=== PATIENT | female | born 1985 | race American Indian/Alaskan Native ===

== ENCOUNTER 2017-05-01 15:39 | Emergency (ER) | payer MEDICAID ==
[2017-05-01] MEDS ORDERED: NACL 0.9% 1000 ML 1,000 ML IV ONE ×4 (16:17→23:38)
[2017-05-01] MEDS ORDERED: NACL 0.9% 1000 ML 1,000 ML ONE ×2 (16:22→20:24)
[2017-05-01 16:50] LABS: Alanine Aminotransferase 10 units/L (7-56); Albumin 4.1 g/dL (3.9-5); Albumin/Globulin Ratio 1.4 %; Alkaline Phosphatase 49 units/L (35-129); Anion Gap 25 mmol/L; BUN/Creatinine Ratio 11.81; Blood Urea Nitrogen 13 mg/dL (7-17); Calcium 9.7 mg/dL (8.4-10.2); Carbon Dioxide 19 mmol/L (22-30); Chloride 96.7 mmol/L (98-107); Glucose 122 mg/dL (65-100); Lipase 12 units/L (13-60); Potassium 4.2 mmol/L (3.6-5.0); Sodium 136 mmol/L (137-145)
[2017-05-01 16:51] LABS: Hematocrit 42.7 % (30.3-42.9); Hemoglobin 13.9 gm/dl (10.1-14.3); Mean Corpuscular HGB Conc 33 % (30-34); Mean Corpuscular Hemoglobin 31 pg (28-32); Mean Corpuscular Volume 95 fl (79-97); Platelet Count 153 K/mm3 (140-440); Red Blood Count 4.52 M/mm3 (3.65-5.03); Red Cell Distribution Width 14.2 % (13.2-15.2)
[2017-05-01] MEDS ORDERED: ZOFRAN IV ONE (16:59)
[2017-05-01 17:52] LABS: INR 1.08 (0.87-1.13)
[2017-05-01 17:53] LABS: Partial Thromboplastin Time 21.8 Sec. (24.2-36.6)
[2017-05-01] MEDS ORDERED: SUBLIMAZE IV ONE (18:00)
--- NOTE | 2017-05-01 18:06 | Emergency Department Report ---
HPI - General Chief Complaint: Abdominal Pain Time Seen by Provider: 05/01/17 16:37 - HPI HPI: Patient is a 31-year-old female presents for evaluation of abdominal pain. The patient reports left lower quadrant abdominal pain since noon earlier today, 4 hours prior to my evaluation, 10/10 in severity, sharp in quality, constant since onset and progressive, radiating to the back. She has also experienced nausea, 2 episodes of nonbilious, nonbloody emesis, and vaginal bleeding. She states that her vaginal bleeding is consistent with her normal menstrual period , and that her menstrual periods began earlier today prior to her pain. The patient denies fever, chills, night sweats, diarrhea, blood in the stool, dark tarry stool, dysuria, hematuria, flank pain, genital discharge, inability to pass flatus. She shares that she has consumed very little food over the past 3 weeks due to dissatisfaction with food options in [facility]. She admits to consuming better by mouth intake or fluids today. ED Past Medical Hx - Past Medical History Previous Medical History?: Yes Hx Hypertension: Yes Hx Psychiatric Treatment: Yes (ANXIETY) - Surgical History Past Surgical History?: Yes Additional Surgical History: FIBROIDECTOMY - Social History Smoking Status: Never Smoker Substance Use Type: None - Medications Home Medications: Home Medications Medication Instructions Recorded Confirmed Last Taken Type Hydrochlorothiazide [HCTZ] 25 mg PO QDAY 05/01/17 05/01/17 05/01/17 History Lisinopril [Zestril TAB] 10 mg PO QDAY 05/01/17 05/01/17 05/01/17 History Ondansetron [Zofran TAB] 4 mg PO Q8HR PRN #15 tablet 05/02/17 Unknown Rx traMADol [Ultram 50 MG tab] 50 mg PO Q6HR PRN #15 tablet 05/02/17 Unknown Rx ED Review of Systems ROS: Stated complaint: ABDOMINAL PAIN Other details as noted in HPI Constitutional: denies: fever ENT: denies: throat or neck pain Respiratory: denies: cough, shortness of breath Cardiovascular: denies: chest pain Endocrine: denies unexplained weight loss or gain Gastrointestinal: reports abdominal pain, nausea Genitourinary: denies: dysuria Musculoskeletal: denies: leg swelling Skin: denies: rash Neurological: denies: headache Hematological/Lymphatic: denies: easy bleeding or easy bruising Psych: denies sadness or hopelessness Physical Exam - Physical Exam Vital Signs: Vital Signs 05/01/17 05/01/17 05/01/17 15:55 16:03 16:15 Temperature 98.3 F Pulse Rate 95 H 77 79 Respiratory 22 12 12 Rate Blood Pressure 71/31 76/50 O2 Sat by Pulse 100 Oximetry 05/01/17 05/01/17 16:32 16:38 Temperature 97.6 F Pulse Rate Respiratory 18 Rate Blood Pressure O2 Sat by Pulse 98 Oximetry Physical Exam: General: well-nourished, well-developed, no acute distress Head: Normocephalic, atraumatic Eyes: normal sclera ENT: Mucous membranes are pale and dry Neck: No neck stiffness, no cervical adenopathy Respiratory: Breath sounds equal bilaterally, no wheezing, rales, or rhonchi Cardio: S1 and S2 present, no murmurs, rubs, gallops, capillary refill is delayed Abdomen: Normoactive bowel sounds, soft abdomen, left lower quadrant tenderness to palpation present, no rigidity, no guarding or rebound tenderness Chest WALL/Back: No tenderness to palpation of the chest wall, no CVA tenderness with percussion Musc: No pitting edema Skin: No rash Neuro: no facial drooping, normal speech Psych: Normal affect ED Course Vital Signs 05/01/17 05/01/17 05/01/17 15:55 16:03 16:15 Temperature 98.3 F Pulse Rate 95 H 77 79 Respiratory 22 12 12 Rate Blood Pressure 71/31 76/50 O2 Sat by Pulse 100 Oximetry 05/01/17 05/01/17 16:32 16:38 Temperature 97.6 F Pulse Rate Respiratory 18 Rate Blood Pressure O2 Sat by Pulse 98 Oximetry ED Medical Decision Making - Lab Data Result diagrams: 05/01/17 16:02 05/01/17 16:02 - Medical Decision Making The patient was seen and examined by myself. The patient is placed on a monitoring specialist and continuous pulse ox. On initial evaluation, the patient was found to be in no distress. Evaluation orders are placed. IV access is established and the patient is given 1 L normal saline fluid bolus and Zofran for nausea, and IV fentanyl and IV Toradol for pain. Lab results revealed elevated WBC of 14, and otherwise labs were non-concerning including hemoglobin , hematocrit, electrolytes, renal function, LFTs, lipase, urinalysis, and neg preg test. The patient was given 3 additional NS fluid boluses and her BP normalized to 109/63. Ultrasound of the pelvis is unremarkable. CT scan of the abdomen and pelvis with IV contrast is normal as well. The patient was reevaluated and reported that her abdominal pain was completely resolved. The patient is stable for discharge with outpatient follow-up. The patient is given follow-up and return instructions. The patient expressed understanding and agreed with the plan. The patient is discharged in stable condition. Critical care attestation.: If time is entered above; I have spent that time in minutes in the direct care of this critically ill patient, excluding procedure time. ED Disposition Clinical Impression: Dehydration, severe, Hypovolemia due to dehydration, Acute abdominal pain in left lower quadrant Disposition: DC- TO HOME OR SELFCARE Is pt being admited?: No Does the pt Need Aspirin: No Condition: Stable Instructions: Abdominal Pain (ED), Dehydration (ED) Prescriptions: Ondansetron [Zofran TAB] 4 mg PO Q8HR PRN #15 tablet PRN Reason: Nausea traMADol [Ultram 50 MG tab] 50 mg PO Q6HR PRN #15 tablet PRN Reason: Pain Referrals: PRIMARY CARE, [Primary Care Provider] - 3-5 Days [facility] [Provider Group] - 3-5 Days Time of Disposition: 18:11
--- NOTE | 2017-05-01 18:44 | Ultrasound Report ---
FINAL REPORT PROCEDURE: US PELVIC COMPLETE TECHNIQUE: Real-time transabdominal sonography in multiple planes of pelvis was performed with image documentation. This examination was performed without Doppler. Vascular abnormalities, including ovarian torsion, will not be detectable without Doppler evaluation. CPT 85439 HISTORY: LLQ abd/pelvic pain COMPARISON: No prior studies are available for comparison. FINDINGS: UTERUS Size: 7 x 4 x 4 cm. Endometrial thickness: 6 mm. Orientation: anteverted. Cervix: Normal. Fibroids/masses: None. RIGHT Ovary: 3.4 x 1.7 x 2.2 cm. Appearance: Normal. LEFT Ovary: 3.2 x 2.3 x 2.7 cm. Appearance: Normal. Pelvic fluid: None. Other: None. IMPRESSION: Unremarkable study
--- NOTE | 2017-05-01 18:45 | Ultrasound Report ---
FINAL REPORT PROCEDURE: US TRANSVAGINAL TECHNIQUE: Real-time transvaginal sonography in multiple planes of the pelvis was performed with image documentation. This examination was performed without Doppler. Vascular abnormalities, including ovarian torsion, will not be detectable without Doppler evaluation. CPT 76054 HISTORY: LLQ abd/pelvic pain COMPARISON: No prior studies are available for comparison. FINDINGS: UTERUS Size: 7 x 4 x 4 cm. Endometrial thickness: 6 mm. Orientation: anteverted. Cervix: Normal. Fibroids/masses: None. RIGHT Ovary: 3.4 x 1.7 x 2.2 cm. Appearance: Normal. LEFT Ovary: 3.2 x 2.3 x 2.7 cm. Appearance: Normal. Pelvic fluid: Minimal free fluid is noted in the pelvic cavity which is within physiologic limits. Other: None. IMPRESSION: Unremarkable study.
--- NOTE | 2017-05-01 23:01 | Cat Scan Report ---
FINAL REPORT PROCEDURE: CT abdomen and pelvis with contrast. TECHNIQUE: Computerized axial tomography of the abdomen and pelvis was performed after the IV injection of iodinated nonionic contrast. HISTORY: Left lower quadrant abdominal pain, hypotension. COMPARISON: No prior studies are available for comparison. FINDINGS: The lung bases are clear. There are no pleural effusions. The heart size is normal. The liver, pancreas and spleen appear normal. The gallbladder is present. The adrenal glands are not enlarged. Both kidneys appear normal in size and configuration. The abdominal aorta has a normal caliber. There is no retroperitoneal adenopathy. The unopacified gastrointestinal tract is unremarkable. The appendix is not definitely visualized. There are no signs of an inflammatory process near the cecum. The bladder is unremarkable. The uterus appears normal. There are some curvilinear calcifications in the right adnexa. These may be ovarian in etiology. There is no definite fluid in the cul-de-sac. The regional skeleton appears intact. IMPRESSION: Curvilinear calcifications in the right adnexal region which could be related to the ovary. Otherwise normal studies of the abdomen and pelvis.
[2017-05-01] MEDS ORDERED: TORADOL IV ONE (23:44)
[2017-05-01] MEDS ORDERED: BENADRYL IV ONE (23:44)
[2017-05-02 00:41] VITALS: BP 109/63
== END 2017-05-02 01:48 | disposition home or self-care (01) ==
LOC: ED 15:39
DX: E86.0 Dehydration (principal); E86.1 Hypovolemia; I10 Essential (primary) hypertension
CPT/HCPCS: 36415; 74177; 76830; 76856; 80053; 82140; 83690; 84439; 84443; 84702; 85025; 85610; 85730; 86850; 86900; 86901; 93005; 93010; 96361; 96374; 96375; 99284; J1200; J1885; J2405; J3010; J7030; Q9967